=== PATIENT | male | born 1990 | race African-American/Black ===

== ENCOUNTER 2018-10-29 09:35 | Emergency (ER) | payer SELFPAY ==
[2018-10-29 09:45] VITALS: BP 115/78; PULSE 63; TEMP 98; BMI 22.1
--- NOTE | 2018-10-29 09:55 | PDOC ---
History of Present Illness - General Chief Complaint: Sore Throat Stated Complaint: SORE THROAT Time Seen by Provider: 10/29/18 09:54 History Source: Patient Exam Limitations: No Limitations - History of Present Illness Initial Comments: 10/29/18 09:55 sore throat pain x 3 days with cough and cold symptoms. However patient states worse problem has been some mild tenderness to his testicles, and drainage noted from penis the past few days. States his had unprotected sex but was a month ago. States does not have contact with the partner any longer and is uncertain as to whether she had symptoms. Denies any history of STDs, denies any ulcerations or lesions to his penis or testicles. States HIV testing one year ago was negative. 10/29/18 11:31 Timing/Duration: unsure Severity: mild, moderate Associated Symptoms: reports: cough, fever/chills, headaches Past History - Travel Traveled outside of the country in the last 30 days: No Close contact w/someone who was outside of country & ill: No - Past Medical History Allergies/Adverse Reactions: Allergies Allergy/AdvReac Type Severity Reaction Status Date / Time No Known Allergies Allergy Verified 10/29/18 09:45 Home Medications: Ambulatory Orders NK [No Known Home Medication] 10/29/18 COPD: No - Suicide/Smoking/Psychosocial Hx Smoking History: Never smoked Information on smoking cessation initiated: No Hx Alcohol Use: No Drug/Substance Use Hx: No Review of Systems - Review of Systems Able to Perform ROS?: Yes Is the patient limited Maltese proficient: Yes Constitutional: Yes: Symptoms Reported, See HPI, Malaise. No: Fever HEENTM: Yes: Symptoms Reported, See HPI, Throat Pain, Throat Swelling, Difficulty Swallowing Respiratory: Yes: Symptoms reported, See HPI, Cough : Yes: Symptoms Reported, See HPI, Burning, Discharge, Testicular Pain Musculoskeletal: No: Symptoms Reported Integumentary: No: Symptoms Reported Neurological: No: Symptoms reported All Other Systems: Reviewed and Negative *Physical Exam - Vital Signs Last Vital Signs Temp Pulse Resp BP Pulse Ox 98 F 63 18 115/78 100 10/29/18 09:43 10/29/18 09:43 10/29/18 09:43 10/29/18 09:43 10/29/18 09:43 - Physical Exam General Appearance: Yes: Nourished, Appropriately Dressed, Apparent Distress, Mild Distress HEENT: positive: FELIX, Normal ENT Inspection, TMs Normal, Pharynx Normal Neck: positive: Tender, Supple Respiratory/Chest: positive: Lungs Clear, Normal Breath Sounds Male Genitalia: positive: normal genitalia, testicular tenderness (mild bilateral ). negative: discharge Musculoskeletal: positive: Normal Inspection Extremity: positive: Normal Capillary Refill, Normal Inspection Integumentary: positive: Normal Color, Dry, Warm Neurologic: positive: motorbike courier II-XII NML intact, Fully Oriented, Alert, Normal Mood/ Affect, Normal Response, Motor Strength 10/24 Medical Decision Making - Medical Decision Making 10/29/18 11:39 Patient medicated with 1 g of Zithromax to treat chlamydia and 250mg IM dose of Rocephin to treat gonorrhea understanding test results would not resulted for 3- 4 days. No reaction after 30 minutes observation . &UUnderstands need to F/U with PMD / clinic for further testing / HIV/Syphillis . 10/29/18 11:40 *DC/Admit/Observation/Transfer Diagnosis at time of Disposition: Epididymitis, Sexually transmitted disease counseling - Discharge Dispostion Disposition: HOME Condition at time of disposition: Stable Decision to Admit order: No - Referrals - Patient Instructions Printed Discharge Instructions: DI for Epididymitis, How to Detect and Treat STDs Additional Instructions: You been treated today with azithromycin 1 g by mouth for treatment of presumed chlamydia You have been treated with Rocephin 250 mg injection for treatment of presumned gonorrhea The gonorrhea and chlamydia testing will not be completed for the next few days. You may call [phone] and leave message for return phone call with lab results. Be sure to be clear with your name, birthdate, and phone number Always use condoms with the partners Followup with [facility] or PMD in one week for reevaluation and retesting. - Post Discharge Activity Forms/Work/School Notes: Back to Work
[2018-10-29 10:42] LABS: EPI CELLS 1.4 /HPF (0-5/HPF); URINE APPEARANCE CLEAR; URINE BILIRUBIN NEGATIVE (NEGATIVE); URINE CASTS 6 /lpf (0-8); URINE COLOR YELLOW; URINE GLUCOSE (UA) NEGATIVE (NEGATIVE); URINE KETONE NEGATIVE (NEGATIVE); URINE LEUK ESTERASE TRACE (NEGATIVE); URINE NITRITE NEGATIVE (NEGATIVE); URINE PROTEIN NEGATIVE (NEGATIVE); URINE RBC 2 /hpf (0-4); URINE WBC 20 /hpf (0-5)
[2018-10-29] MEDS ORDERED: AZITHROMYCIN 500 MG TABLET PO ONE (11:05)
[2018-10-29] MEDS ORDERED: AZITHROMYCIN 250 MG TABLET ONE (11:12)
== END 2018-10-29 11:37 | disposition home or self-care (01) ==
LOC: JERFT 09:35
DX: N45.1 Epididymitis (principal); J06.9 Acute upper respiratory infection, unspecified; Z70.8 Other sex counseling
CPT/HCPCS: 36415; 81003; 87070; 87077; 87491; 87591; 87880; 99281-25